=== PATIENT | female | born 1990 | race Asian ===

== ENCOUNTER 2016-04-16 08:48 | Emergency (ER) | payer OTHER, MEDICAID ==
[~2016-04-16] VITALS: Ht 167.6 cm; Wt 84.0 kg
[2016-04-16 10:28] VITALS: BP 142/86
== END 2016-04-16 10:41 | disposition home or self-care (01) ==
LOC: EMS 08:49
DX: S81.811A Laceration without foreign body, right lower leg, initial encounter (principal); F17.210 Nicotine dependence, cigarettes, uncomplicated; X58.XXXA Exposure to other specified factors, initial encounter; Y93.89 Activity, other specified; Y92.89 Other specified places as the place of occurrence of the external cause; Y99.8 Other external cause status
CPT/HCPCS: 99283

== ENCOUNTER 2022-06-12 18:36 | Emergency (ER) | payer OTHER, MEDICAID ==
[~2022-06-12] VITALS: Ht 172.7 cm; Wt 78.2 kg
[2022-06-12 18:41] VITALS: BP 139/76
[2022-06-12] MEDS ORDERED: IBUP-1554 PO (19:29)
[2022-06-12] MEDS ORDERED: ACET-2080 PO (19:29)
[2022-06-12] MEDS ORDERED: CEPH-558 PO (19:29)
== END 2022-06-12 19:52 | disposition home or self-care (01) ==
LOC: EMS 18:42
DX: N61.0 Mastitis without abscess (principal); F32.A Depression, unspecified; F17.210 Nicotine dependence, cigarettes, uncomplicated
CPT/HCPCS: 99282; Z7502